=== PATIENT | female | born 1980 | race Caucasian/White ===

== ENCOUNTER 2025-02-06 12:38 | Outpatient (REF) | payer MEDICAID, SELFPAY ==
--- NOTE | 2025-02-06 12:30 | PAPFT_PTH ---
PATIENT: Violeta Lester LOC: [facility] U#:[id number] AGE/SX: 45/F ROOM: RE02/06/[address]: Lilly Ceja DO : 1980 BED: DIS: 02/06/2025 SPEC #: [id number] RECD: 02/06/25 15:04 STATUS: DEON REQ #: [id number] NOEL: 02/06/25 12:[address]: Lilly Ceja DEPT: [facility] Cytology RECD BY: Jodie Lux ENTERED: 02/06/25 15:05 SP TYPE: PAPFT OTHR DR: None Tissues: 1 - CX/ENDOCX FOR PAP SMEARS Procedures: PAP THIN PREP/[facility] Screening HPV DNA PROBE Comments: [id number] (HPV 16 & 18/45)
== END 2025-02-06 12:39 | disposition home or self-care (01) ==
LOC: LBN 12:38
PROVIDERS: Visit Provider Obstetrics & Gynecology
DX: Z12.4 Encounter for screening for malignant neoplasm of cervix (principal)
CPT/HCPCS: 88142; 87624